=== PATIENT | male | born 1990 | race Caucasian/White ===

== ENCOUNTER 2023-06-06 20:21 | Emergency (ER) | payer OTHER ==
[~2023-06-06] VITALS: Ht 165.1 cm; Wt 104.3 kg
--- NOTE | 2023-06-06 20:23 | NUR ---
PT. RAMIRO, PLACED IN BED 03
[2023-06-06 20:27] VITALS: BP 155/94; PULSE 97; RESP 18; TEMP 98; O2SAT 97
[2023-06-06] MEDS ORDERED: diazePAM 5 MG TAB PO ONE (20:35)
[2023-06-06] MEDS ORDERED: ONDANSETRON 4 MG/2 ML VIAL IVP ONE ×2 (20:35→22:10)
[2023-06-06] MEDS ORDERED: NACL 0.9% 1,000 ML IV ONE (20:35)
[2023-06-06] MEDS ORDERED: MORPHINE SULFATE 4 MG/ML SYR IVP ONE ×2 (20:35→22:10)
--- NOTE | 2023-06-06 21:00 | NUR ---
pt resting on bed, A/ox4. not in distress. on monitor, ' call light within reach. pt instructed on how to use call light. pt returned demonstration. all needs met at this time. bed locked in lowest position. side rails x2 for safety. no standard id wrist band available. noted by charge nurse. verified pt name and date of when doing bedside and giving medication
[2023-06-06] MEDS ORDERED: PROPOFOL 200 MG/20 ML VIAL IV ONE ×2 (22:10→23:19)
--- NOTE | 2023-06-06 22:40 | NUR ---
signed consent for left shoulder reduction and moderate sedation attached to chart
--- NOTE | 2023-06-06 23:00 | NUR ---
Rt, rn, emt, ermd, radiation control worker at bedside
--- NOTE | 2023-06-06 23:00 | NUR ---
pt on monitor, o2 provided vianasal cannula 2lpm. at bedside suction equipment, code cart, iv equipment, medication, etco2,
--- NOTE | 2023-06-06 23:00 | NUR ---
time out called by dr. michael
--- NOTE | 2023-06-06 23:05 | NUR ---
sedation started by dr. michael.
--- NOTE | 2023-06-06 23:05 | NUR ---
propogol 100mg given iv as ordered by dr. michael
--- NOTE | 2023-06-06 23:23 | NUR ---
propofol 200mg iv given as ordered by dr. michael
--- NOTE | 2023-06-06 23:30 | NUR ---
propofol 50mg iv given as ordered by dr. michael
--- NOTE | 2023-06-06 23:45 | NUR ---
RT PAGED BY RN AT 22:17 TO ASSIST WITH CONCIOUS SEDATION. PROCEDURE CONCLUDED AT 23:45.
--- NOTE | 2023-06-07 00:30 | NUR ---
ermd at bedside
[2023-06-07] MEDS ORDERED: ACET-2619 PO (00:38)
[2023-06-07] MEDS ORDERED: IBUP-2230 PO (00:40)
[2023-06-07 01:35] VITALS: BP 115/70; PULSE 96; RESP 25; TEMP 98.1; O2SAT 95
[2023-06-07] MEDS ORDERED: PROPOFOL 200 MG/20 ML VIAL IV ONE (01:35)
--- NOTE | 2023-06-07 01:35 | NUR ---
Patient discharged with v/s stable. Written and verbal after care instructions given and explained. Patient alert, oriented and verbalized understanding of instructions. Ambulatory with steady gait. All questions addressed prior to discharge. ID band removed. Patient advised to follow up with PMD. Rx given to pt. Patient educated on indication of medication including possible reaction and side effects. Opportunity to ask questions provided and answered.
== END 2023-06-07 01:35 | disposition home or self-care (01) ==
LOC: MED 20:21
DX: S43.005A Unspecified dislocation of left shoulder joint, initial encounter (principal); Z79.899 Other long term (current) drug therapy; W19.XXXA Unspecified fall, initial encounter; Y93.89 Activity, other specified; Y92.89 Other specified places as the place of occurrence of the external cause; Y99.8 Other external cause status
CPT/HCPCS: 23650; 73030; 96361; 96374; 96375; 96376; 99152; 99291; J2270; J2405; J2704; J7030; Q0092